=== PATIENT | male | born 1960 | race African-American/Black ===

== ENCOUNTER 2019-11-07 15:53 | Inpatient (IN) | payer OTHER ==
[~2019-11-07] VITALS: Ht 165.1 cm; Wt 86.2 kg
[2019-11-07] MEDS ORDERED: LABETALOL HCL 5 MG/ML 20ML VIAL IV STA (16:19)
[2019-11-07] MEDS ORDERED: ONDANSETRON HCL INJ 2MG/ML 2ML 2 MG/ML VIAL IV STA (16:19)
[2019-11-07] MEDS ORDERED: ASPIRIN 81 MG CHEW TAB PO ONE (16:30)
[2019-11-07 16:51] LABS: BASOPHILS % 0.3 % (0.0-1.0); EOSINOPHILS # (AUTO) 0.1 (0.0-0.4); EOSINOPHILS % 1.2 % (0.0-6.0); HEMATOCRIT 34.8 % (38.2-49.6); HEMOGLOBIN 11.2 g/dL (14.0-18.0); LYMPHOCYTES # (AUTO) 1.7 (1.0-3.2); LYMPHOCYTES % 13.8 % (18.0-39.1); MEAN CORPUSCULAR HEMOGLOBIN 28.4 pg (28-32); MEAN CORPUSCULAR HGB CONC 32.2 g/dL (31-35); MEAN CORPUSCULAR VOLUME 88.3 fL (81-99); MONOCYTES # (AUTO) 1.2 (0.2-0.8); MONOCYTES % 10.3 % (4.4-11.3); NEUTROPHILS # (AUTO) 8.9 (2.1-6.9); NEUTROPHILS % 73.9 % (38.7-80.0); PLATELET COUNT 323 x10e3/uL (140-360); RED BLOOD COUNT 3.94 x10e6/uL (4.3-5.7); RED CELL DISTRIBUTION WIDTH 14.6 % (11.7-14.4)
[2019-11-07 16:58] LABS: INR 1.04; PROTHROMBIN TIME 14.2 seconds (11.9-14.5)
[2019-11-07 16:59] LABS: PARTIAL THROMBOPLASTIN TIME 36.8 seconds (23.8-35.5)
[2019-11-07 17:09] LABS: ALANINE AMINOTRANSFERASE 31 IU/L (0-55); ALBUMIN 3.1 g/dL (3.5-5.0); ALBUMIN/GLOBULIN RATIO 0.7 (0.8-2.0); ALKALINE PHOSPHATASE 138 IU/L (40-150); ANION GAP 12.6 mmol/L (8-16); BLOOD UREA NITROGEN 12 mg/dL (7-26); BUN/CREATININE RATIO 14 (6-25); CALCIUM 8.9 mg/dL (8.4-10.2); CARBON DIOXIDE 23 mmol/L (22-29); CHLORIDE 106 mmol/L (98-107); CREATINE KINASE 662 IU/L (30-200); CREATININE, SERUM 0.86 mg/dL (0.72-1.25); EST GLOMERULAR FILTRATION RATE > 60 ML/MIN (60-); GLUCOSE 127 mg/dL (74-118); POTASSIUM 3.6 mmol/L (3.5-5.1); SODIUM 138 mmol/L (136-145)
--- NOTE | 2019-11-07 17:10 | Diagnostic Imaging Report ---
EXAMINATION: CHEST SINGLE (PORTABLE) INDICATION: Chest pain COMPARISON: None FINDINGS: AP view TUBES and LINES: There is a dual-lead pacemaker embedded in the left anterior chest wall with distal tips in the right atrium and right ventricle. Midline sternotomy wires are seen LUNGS/PLEURA: Lungs are well inflated. There is mild prominence of the central pulmonary vasculature, consistent with pulmonary venous congestion.. There is no pleural effusion or pneumothorax. HEART AND MEDIASTINUM: Cardiac size is mildly enlarged. BONES AND SOFT TISSUES: No acute osseous lesion. Soft tissues are unremarkable. UPPER ABDOMEN: No free air under the diaphragm. IMPRESSION: Mild cardiomegaly and very mild pulmonary venous congestion. Signed by: Adelso Becerra MD on 11/07/2019 5:06 PM
[2019-11-07] MEDS ORDERED: NITROGLYCERIN 2% OINT 1 GM PKT TOP ONE (17:45)
[2019-11-07] MEDS ORDERED: CLOPIDOGREL BISULFATE 75 MG TAB PO ONE (17:45)
[2019-11-07] MEDS: ENOXAPARIN SODIUM INJ 100 MG/ML SYR SC SCH (17:59)
[2019-11-07] MEDS ORDERED: AMIODARONE HCL 150MG 100 ML IV SCH (18:15)
[2019-11-07] MEDS ORDERED: AMIODARONE HCL 360MG 200 ML IV SCH (18:15)
[2019-11-07] MEDS ORDERED: AMIODARONE HCL 150 MG in DEXTROSE 5% 100ML 100 ML IV SCH (18:30)
[2019-11-07] MEDS ORDERED: AMIODARONE HCL INJ 150MG/3ML ONE (18:33)
[2019-11-07] MEDS: AMIODARONE HCL 900 MG in DEXTROSE 5 % 500ML BOTTLE 500 ML IV SCH (18:56)
[2019-11-07] MEDS ORDERED: ONDANSETRON HCL INJ 2MG/ML 2ML 2 MG/ML VIAL IV PRN (19:00)
--- NOTE | 2019-11-07 19:04 | Emergency Department Note ---
History of Present Illnes History of Present Illness Chief Complaint: Chest Pain History of Present Illness This is a 58 year old male PATIENT IN FROM HOME WITH COMPLAINTS OF CHEST PAIN X 2 WEEKS, RATES PAIN 10/10. PATIENT WITH A HISTORY OF CABG, HTN, CVA, [place]. NOT TAKING HIS BP MEDS FOR MONTHS Historian: Patient Arrival Mode: Car Sheeter Machine Operator Required: No Onset (how long ago): week(s) (2) Location: CHEST Quality: TIGHT Radiation: Reports extremity Severity: moderate Onset quality: gradual Timing of current episode: intermittent Progression: waxing and waning Chronicity: new Context: Denies recent illness Relieving factors: none Exacerbating factors: none Associated symptoms: Reports denies other symptoms Treatments prior to arrival: none Past Medical/Family History Physician Review I have reviewed the patient's past medical and family history. Any updates have been documented here. Past Medical History Recent Fever: No Clinical Suspicion of Infectio: No New/Unexplained Change in Ment: No Past Medical History: Hypertension, [place], CVA, Hyperlipedemia Past Surgical History: CABG, PCI, Pacer/AICD Social History Smoking Cessation: Former smoker Counseling Performed: No Alcohol Use: Occasional Any Illegal Drug Use: No Physically hurt or threatened: No Other Any Pre-Existing Lines (PICC,: No Review of Systems Review of Systems Constitutional: Reports no symptoms EENTM: Reports no symptoms Cardiovascular: Reports as per HPI Respiratory: Reports no symptoms Gastrointestinal: Reports no symptoms Genitourinary: Reports no symptoms Musculoskeletal: Reports no symptoms Integumentary: Reports no symptoms Neurological: Reports no symptoms Psychological: Reports no symptoms Endocrine: Reports no symptoms Hematological/Lymphatic: Reports no symptoms Physical Exam Related Data Allergies: Coded Allergies: morphine (Verified Allergy, Severe, VOMIT BLOOD, 11/07/19) Triage Vital Signs Vital Signs Date Time Temp Pulse Resp B/P (MAP) Pulse Ox O2 Delivery O2 Flow Rate FiO2 11/07/19 16:04 98.8 99 16 179/124 100 Room Air Vital signs reviewed: Yes Physical Exam CONSTITUTIONAL Constitutional: Present well-developed, Present well-nourished HENT HENT: Present normocephalic, Present atraumatic, Present oropharynx clear/mois t, Present nose normal HENT L/R: Present left ext ear normal, Present right ext ear normal EYES Eyes: Reports PERRL, Reports conjunctivae normal NECK Neck: Present ROM normal PULMONARY Pulmonary: Present effort normal, Present breath sounds normal CARDIOVASCULAR Cardiovascular: Present regular rhythm, Present heart sounds normal, Present capillary refill normal, Present normal rate GASTROINTESTINAL Abdominal: Present soft, Present nontender, Present bowel sounds normal GENITOURINARY Genitourinary: Present exam deferred SKIN Skin: Present warm, Present dry MUSCULOSKELETAL Musculoskeletal: Present ROM normal NEUROLOGICAL Neurological: Present alert, Present oriented x 3, Present no gross motor or sensory deficits PSYCHOLOGICAL Psychological: Present mood/affect normal, Present judgement normal Results Laboratory Result Diagram: 11/07/19 1620 11/07/19 1620 Laboratory Laboratory Tests Test 11/07/19 16:20 White Blood Count 11.99 x10e3/uL (4.8-10.8) Red Blood Count 3.94 x10e6/uL (4.3-5.7) Hemoglobin 11.2 g/dL (14.0-18.0) Hematocrit 34.8 % (38.2-49.6) Mean Corpuscular Volume 88.3 fL (81-99) Mean Corpuscular Hemoglobin 28.4 pg (28-32) Mean Corpuscular Hemoglobin Concent 32.2 g/dL (31-35) Red Cell Distribution Width 14.6 % (11.7-14.4) Platelet Count 323 x10e3/uL (140-360) Neutrophils (%) (Auto) 73.9 % (38.7-80.0) Lymphocytes (%) (Auto) 13.8 % (18.0-39.1) Monocytes (%) (Auto) 10.3 % (4.4-11.3) Eosinophils (%) (Auto) 1.2 % (0.0-6.0) Basophils (%) (Auto) 0.3 % (0.0-1.0) Neutrophils # (Auto) 8.9 (2.1-6.9) Lymphocytes # (Auto) 1.7 (1.0-3.2) Monocytes # (Auto) 1.2 (0.2-0.8) Eosinophils # (Auto) 0.1 (0.0-0.4) Basophils # (Auto) 0.0 (0.0-0.1) Absolute Immature Granulocyte (auto 0.06 x10e3/uL (0-0.1) Prothrombin Time 14.2 seconds (11.9-14.5) Prothromb Time International Ratio 1.04 Activated Partial Thromboplast Time 36.8 seconds (23.8-35.5) Sodium Level 138 mmol/L (136-145) Potassium Level 3.6 mmol/L (3.5-5.1) Chloride Level 106 mmol/L (98-107) Carbon Dioxide Level 23 mmol/L (22-29) Anion Gap 12.6 mmol/L (8-16) Blood Urea Nitrogen 12 mg/dL (7-26) Creatinine 0.86 mg/dL (0.72-1.25) Estimat Glomerular Filtration Rate > 60 ML/MIN (60-) BUN/Creatinine Ratio 14 (6-25) Glucose Level 127 mg/dL (74-118) Calcium Level 8.9 mg/dL (8.4-10.2) Total Bilirubin 0.7 mg/dL (0.2-1.2) Aspartate Amino Transf (AST/SGOT) 68 IU/L (5-34) Alanine Aminotransferase (ALT/SGPT) 31 IU/L (0-55) Alkaline Phosphatase 138 IU/L (40-150) Creatine Kinase 662 IU/L (30-200) Creatine Kinase MB 61.30 ng/mL (0-5.0) Troponin I 20.789 ng/mL (0-0.300) B-Type Natriuretic Peptide 823.9 pg/mL (0-100) Total Protein 7.5 g/dL (6.5-8.1) Albumin 3.1 g/dL (3.5-5.0) Globulin 4.4 g/dL (2.3-3.5) Albumin/Globulin Ratio 0.7 (0.8-2.0) Lab results reviewed: Yes Imaging Imaging results reviewed: Yes Impressions EXAMINATION: CHEST SINGLE (PORTABLE) INDICATION: Chest pain COMPARISON: None FINDINGS: AP view TUBES and LINES: There is a dual-lead pacemaker embedded in the left anterior chest wall with distal tips in the right atrium and right ventricle. Midline sternotomy wires are seen LUNGS/PLEURA: Lungs are well inflated. There is mild prominence of the central pulmonary vasculature, consistent with pulmonary venous congestion.. There is no pleural effusion or pneumothorax. HEART AND MEDIASTINUM: Cardiac size is mildly enlarged. BONES AND SOFT TISSUES: No acute osseous lesion. Soft tissues are unremarkable. UPPER ABDOMEN: No free air under the diaphragm. IMPRESSION: Mild cardiomegaly and very mild pulmonary venous congestion. Signed by: Adelso Becerra MD on 11/07/2019 5:06 PM Procedures 12 Lead ECG Interpretation ECG Interpretation #1: ECG: ECG 2 Date: Nov 07, 2019 Time: 16:14 Rhythm: sinus rhythm Rate: normal (98) QRS axis: normal Conduction: intraventricular conduction delay ST segment elevation: V3 (2 MM) ST segment flattening: I, aVL T wave inversion: II, III, aVF, V5, V6 Other findings: LVH Clinical Impression: abnormal ECG Additional Comments ECG SENT TO Chang SOSA FROM TRIAGE ECG Interpretation #2: ECG: ECG 2 Sheeter Machine Operator: Interpreted by ED physician Date: Nov 07, 2019 Time: 18:15 Rhythm: sinus rhythm (BIATRIAL ENLARGEMENT) Conduction: intraventricular conduction delay T wave elevation: V4, V5 Other findings: LVH, LVH with strain ABG Interpretation Additional comments SENT TO DR SOSA, PT STILL HAVING CP - HE WILL BRING TO DENTAL COORDINATOR Critical Care Time Total Critical Care Time (min): 45 Critical care time exclusive o: separately billable procedures Critcal care necessary due to: cardiac failure Critcal care time spent by me: discussion w consultants, discussion w primary provider, evaluation patient response to tx, examination of patient, order/perform tx or interventions, order/review laboratory studies, re- evaluation of patient condition Assessment & Plan Medical Decision Making MDM HYPERTENSIVE CRISIS/EMERGENCY WITH CP - CBC, CHEM, CARDIACS, ECG, CXR, COAGS, BNP - R/O STEMI/NSTEMI, RENAL INSUFF, CHF. CONTROL BP, ANTICOAGULATE Reassessment Reassessment TO DENTAL COORDINATOR, ICU ADMIT - SPOKE WITH Chang PULIDO L HAMER. PT HAD ~14 BEAT RUN OF VT - AMIODARONE STARTED Assessment & Plan Final Impression: (1) Malignant hypertension (2) Ventricular tachycardia, nonsustained (3) NSTEMI (non-ST elevated myocardial infarction) (4) Chest pain Last Vital Signs Date Time Temp Pulse Resp B/P (MAP) Pulse Ox O2 Delivery O2 Flow Rate FiO2 11/07/19 18:35 79 17 150/107 99 11/07/19 16:04 98.8 Room Air Medications in the ED Ondansetron HCl 4 mg ONCE STAT IV Last administered on 11/07/19at 17:59; Admin Dose 4 MG; Start 11/07/19 at 16:19; Stop 11/07/19 at 16:26; Status DC Aspirin 324 mg ONCE ONCE PO Last administered on 11/07/19at 17:59; Admin Dose 324 MG; Start 11/07/19 at 16:30; Stop 11/07/19 at 16:31; Status DC Labetalol HCl 10 mg NOW STAT IV Last administered on 11/07/19at 17:59; Admin Dose 10 MG; Start 11/07/19 at 16:19; Stop 11/07/19 at 16:26; Status DC Clopidogrel Bisulfate 600 mg ONCE ONCE PO Last administered on 11/07/19at 17:59; Admin Dose 600 MG; Start 11/07/19 at 17:45; Stop 11/07/19 at 17:46; Status DC Enoxaparin Sodium 90 mg Q12H SC Last administered on 11/07/19at 17:59; Admin Dose 90 MG; Start 11/07/19 at 17:45; Stop 11/14/19 at 17:44 Nitroglycerin 1 gm ONCE ONCE TOP Last administered on 11/07/19at 17:59; Admin Dose 1 GM; Start 11/07/19 at 17:45; Stop 11/07/19 at 17:46; Status DC Amiodarone HCl 100 ml @ 600 mls/hr ONCE IV ; Start 11/07/19 at 18:15; Stop 12/07/19 at 18:14; Status UNV Amiodarone HCl 200 ml @ 33 mls/hr Q6H IV ; Start 11/08/19 at 00:00; Stop 11/08/19 at 05:59; Status UNV Amiodarone HCl 200 ml @ 16.6 mls/hr Q18H IV ; Start 11/07/19 at 18:15; Stop 11/08/19 at 12:14; Status UNV Amiodarone HCl 900 mg/Dextrose/ Water 518 ml @ 33 mls/hr [id number] IV ; Start 11/07/19 at 18:30 Amiodarone HCl 150 mg/Dextrose 103 ml @ 618 mls/hr ONCE IV ; Start 11/07/19 at 18:30; Stop 11/07/19 at 18:42; Status DC Amiodarone HCl 50 mg STK-MED ONCE .ROUTE ; Start 11/07/19 at 18:33; Stop 10/20 12/09 at 18:27; Status DC Ondansetron HCl 4 mg Q4H PRN IV NAUSEA AND VOMITING; Start 11/07/19 at 19:00; Stop 12/07/19 at 18:59; Status NEVAEH PIERSON MD Nov 07, 2019 19:04
[2019-11-07] MEDS ORDERED: MIDAZOLAM HCL 2 MG/2 ML VIAL ONE ×2 (19:31→20:14)
[2019-11-07] MEDS ORDERED: VERAPAMIL HCL 2.5 MG/ML 2 ML VIAL ONE (19:31)
[2019-11-07] MEDS ORDERED: LIDOCAINE HCL 2% LOCAL 20 ML VIAL ONE (19:31)
[2019-11-07] MEDS ORDERED: HEPARIN SOD (PORCINE) 1000 UNIT/ML 30ML ONE (19:31)
[2019-11-07] MEDS ORDERED: FENTANYL CITRATE/PF 100MCG/2 ML INJ ONE (19:31)
[2019-11-07] MEDS ORDERED: IOPAMIDOL 370 MG/ML 200 ML INFUS..BTL INJ ONE (19:32)
[2019-11-07] MEDS ORDERED: NITROGLYCERIN/D5W 200 MCG/ML 250 ML ONE (19:32)
[2019-11-07] MEDS ORDERED: HEPARIN SOD/SOD CHLORIDE 2,000 ML ONE (19:32)
[2019-11-07] MEDS ORDERED: SODIUM CHLORIDE 0.9% 1000ML 1,000 ML ONE (19:32)
[2019-11-07] MEDS ORDERED: FUROSEMIDE INJ 10 MG/ML 4 ML VIAL ONE (20:54)
--- NOTE | 2019-11-07 21:05 | NUR ---
Pt arrived to ICU 196 at this time via stretcher from clinical laboratory medical director. Pt moved to barwick bed, and connected to [employer] bedside monitor. Pt currently running NSR in the 70's with BBB and depressed ST. Per RN, baseline rhythm post cath. R groin site assessed, within normal limits, pedal pulse palpable. Pt educated on lying in the supine position with R leg completely straight with no bending at the hip. Verbalized understanding. Pt A/O x4, currently on 2L NC, all VSS at this time and no acute distress noted. Will continue to monitor.
[2019-11-07 21:45] VITALS: BP 126/93
[2019-11-07] MEDS ORDERED: ACETAMINOPHEN 325 MG TAB PO PRN (21:45)
[2019-11-07 21:48] VITALS: BP 126/93
[2019-11-07 22:00] VITALS: BP 139/97
[2019-11-07 23:00] VITALS: BP 137/107
[2019-11-07 23:59] VITALS: BP 139/107
[2019-11-08] VITALS (23 sets, daily range): BP systolic 120–172; BP diastolic 82–127
[2019-11-08] MEDS ORDERED: AMIODARONE HCL 360MG 200 ML IV SCH
[2019-11-08] MEDS: AMIODARONE HCL 900 MG in DEXTROSE 5 % 500ML BOTTLE 500 ML IV SCH (01:00)
[2019-11-08 01:54] LABS: CREATINE KINASE MB 109.8 ng/mL (0-5.0)
--- NOTE | 2019-11-08 02:21 | NUR ---
Dr. Luis M patel, critical lab results reported. TNI 28.178, CKMB 109.80 and CK 1131. No new orders at this time.
[2019-11-08 06:00] LABS: BASOPHILS % 0.2 % (0.0-1.0); EOSINOPHILS % 0.4 % (0.0-6.0); HEMATOCRIT 34.5 % (38.2-49.6); LYMPHOCYTES # (AUTO) 2.1 (1.0-3.2); LYMPHOCYTES % 19.5 % (18.0-39.1); MEAN CORPUSCULAR HEMOGLOBIN 28.1 pg (28-32); MEAN CORPUSCULAR HGB CONC 31.9 g/dL (31-35); MONOCYTES # (AUTO) 1.1 (0.2-0.8); MONOCYTES % 10.1 % (4.4-11.3); NEUTROPHILS # (AUTO) 7.3 (2.1-6.9); NEUTROPHILS % 69.4 % (38.7-80.0); PLATELET COUNT 309 x10e3/uL (140-360); RED BLOOD COUNT 3.92 x10e6/uL (4.3-5.7); RED CELL DISTRIBUTION WIDTH 14.6 % (11.7-14.4)
[2019-11-08] MEDS: ENOXAPARIN SODIUM INJ 100 MG/ML SYR SC SCH ×2 (06:19→16:56)
[2019-11-08 06:49] LABS: ALANINE AMINOTRANSFERASE 71 IU/L (0-55); ALBUMIN 3.1 g/dL (3.5-5.0); ALBUMIN/GLOBULIN RATIO 0.7 (0.8-2.0); ALKALINE PHOSPHATASE 132 IU/L (40-150); ANION GAP 14.8 mmol/L (8-16); BLOOD UREA NITROGEN 14 mg/dL (7-26); BUN/CREATININE RATIO 13 (6-25); CALCIUM 8.9 mg/dL (8.4-10.2); CARBON DIOXIDE 21 mmol/L (22-29); CHLORIDE 106 mmol/L (98-107); CHOL/HDL RATIO 9.8 (3.9-4.7); CHOLESTEROL 283 MD/DL (0-199); CREATININE, SERUM 1.07 mg/dL (0.72-1.25); EST GLOMERULAR FILTRATION RATE > 60 ML/MIN (60-); GLUCOSE 126 mg/dL (74-118); HDL CHOLESTEROL 29 MG/DL (40-60); LDL CHOLESTEROL 231 MG/DL (60-130); POTASSIUM 3.8 mmol/L (3.5-5.1); SODIUM 138 mmol/L (136-145); TRIGLYCERIDES 117 MG/DL (0-149)
[2019-11-08 07:20] LABS: CREATINE KINASE MB 150.2 ng/mL (0-5.0)
[2019-11-08] MEDS ORDERED: AMLODIPINE BESY10 MG PO (09:10)
[2019-11-08] MEDS ORDERED: BYSTOLIC10 MG PO (09:10)
[2019-11-08] MEDS ORDERED: CLONIDINE HCL0.2 MG (09:10)
[2019-11-08] MEDS ORDERED: PLAVIX75 MG PO (09:10)
[2019-11-08] MEDS ORDERED: LISINOPRIL10 MG PO (09:10)
[2019-11-08] MEDS: CLOPIDOGREL BISULFATE 75 MG TAB PO SCH (11:03)
[2019-11-08] MEDS: ASPIRIN 81 MG CHEW TAB PO SCH (11:03)
[2019-11-08] MEDS: LISINOPRIL 10 MG TAB PO SCH (13:32)
--- NOTE | 2019-11-08 13:55 | Consultation ---
DATE OF CONSULTATION: Pulmonary Critical Care Consultation CHIEF COMPLAINT: Chest pain and dyspnea. HISTORY OF PRESENT ILLNESS: The patient is a 58-year-old man. He has a history of some hypertension as well as a prior myocardial infarction and some cardiomyopathy. He came in complaining of intermittent chest pain. It was substernal and radiated into the left arm. He had associated shortness of breath. He was seen by Cardiology. He had elevated troponins along with EKG changes. He went to the kiln labourer emergently and had a cardiac stent placed. The patient now reports symptomatic improvement. He is still on amiodarone. He received Plavix as well. PAST SURGICAL HISTORY: 1. Status post CABG. 2. Status post AICD and pacemaker. PAST MEDICAL HISTORY: 1. Cardiomyopathy. 2. Hypertension. 3. Cerebrovascular accident. FAMILY HISTORY: There is a history of cerebrovascular disease. SOCIAL HISTORY: The patient recently quit smoking. He is not a drinker. ALLERGIES: THE PATIENT IS ALLERGIC TO MORPHINE. REVIEW OF SYSTEMS: He has no headache. There are no fevers. He did have some chest pain, that is improved. He had some dyspnea. He has no cough. He has no abdominal pain. There is no nausea or vomiting. He has no leg edema. PHYSICAL EXAMINATION: VITAL SIGNS: Blood pressure is 148/101, saturation is 100%, and pulse is 91. HEENT: Shows no facial swelling or erythema. CARDIAC: Reveals regular rate and rhythm with normal S1 and S2. LUNGS: Auscultation of lungs reveals crackles at the bases. There is no wheezing. ABDOMEN: Soft and nontender. There is no rebound or guarding. EXTREMITIES: Show no leg edema or calf tenderness. There is no cyanosis or clubbing. SKIN: Shows no rashes. NEUROLOGICAL: Shows no focal abnormalities. LABORATORY DATA: White blood cell count is 10.6, hemoglobin is 11, and platelet count is 309. BUN to creatinine ratio is 14 and 1.07. Other electrolytes are within normal limits. Troponin I is 33.9. RADIOGRAPHIC DATA: Chest x-ray shows cardiomegaly and mild pulmonary venous congestion. IMPRESSION: 1. Acute myocardial infarction. 2. Taena-kn-njxitqn systolic congestive heart failure. 3. Hypertension. 4. Atrial fibrillation. PLAN: 1. Continue anti-platelet therapy and amiodarone as recommended by Cardiology. 2. Continue to wean oxygen. 3. Ambulate when approved by Cardiology. MD MICHAEL Wallis/VANCE /[id number]
[2019-11-08] MEDS: CLONIDINE HCL 0.2 MG TAB PO SCH (16:56)
[2019-11-08] MEDS: FUROSEMIDE INJ 10 MG/ML 4 ML VIAL IV SCH (20:46)
[2019-11-08] MEDS: ATORVASTATIN 40 MG TAB PO SCH (20:47)
[2019-11-09] VITALS (15 sets, daily range): BP systolic 70–165; BP diastolic 50–121
--- NOTE | 2019-11-09 02:07 | Progress Note ---
DATE: 11/08/2019 Cardiology Progress Note SUBJECTIVE: Had PCI to the left circumflex yesterday. Currently chest pain free. OBJECTIVE: VITAL SIGNS: Temperature afebrile, pulse 75, respiratory rate 16, blood pressure 131/84, saturating 99% on 2 L nasal cannula. GENERAL: man, in no acute distress. CARDIOVASCULAR: Regular rate and rhythm. No murmurs, rubs, or gallops. LUNGS: Bibasilar rales. ABDOMEN: Soft, nontender, nondistended. NEURO AND PSYCH: Alert and oriented to person, place, and time. Normal affect. INPATIENT MEDICATIONS: Reviewed. LABORATORY DATA: Reviewed. TELEMETRY DATA: Reviewed, shows normal sinus rhythm. ASSESSMENT AND PLAN: 1. Rbi-WL-bkoneuzyc myocardial infarction. 2. Acute on chronic systolic congestive heart failure. 3. Coronary artery disease, status post coronary artery bypass graft. 4. Nonsustained ventricular tachycardia in a setting of a myocardial infarction. PLAN: Continue diuresing as renal function tolerates. Continue aspirin and Plavix and high-intensity statin. We will up titrate beta-blockers as blood pressure tolerates. We will add ALEM or ARB once. Continue lisinopril. Thank you for this consult. We will continue to follow. MD CESAR King/VANCE /[id number]
--- NOTE | 2019-11-09 02:17 | Consultation ---
DATE OF CONSULTATION: 11/07/2019 Cardiology Consult Note REASON FOR CONSULTATION: Pmz-GI-jeyuurudn myocardial infarction. CHIEF COMPLAINT: Chest pain. HISTORY OF PRESENT ILLNESS: The patient is a 58-year-old man, known history of CAD, status post CABG, presenting with 2 weeks of intermittent chest pressure, now worsened today, noted to have troponin of 20. PAST MEDICAL AND SURGICAL HISTORY: 1. Hypertension. 2. Hyperlipidemia. 3. Coronary artery disease. 4. Status post 3-vessel coronary artery bypass surgery. 5. History of PCI. 6. History of peripheral arterial disease. FAMILY HISTORY: Noncontributory. SOCIAL HISTORY: He does not smoke, drink, or abuse drugs. OUTPATIENT MEDICATIONS: Reviewed. PHYSICAL EXAMINATION: VITAL SIGNS: Temperature afebrile, pulse 71, respiratory rate 18, blood pressure 139/97, saturating 100% on 2 L nasal cannula. GENERAL: man, in no acute distress. CARDIOVASCULAR: Regular rate and rhythm. No murmurs, rubs, or gallops. LUNGS: Bibasilar rales. ABDOMEN: Soft, nontender, nondistended. NEURO AND PSYCH: Alert and oriented to person, place, and time. Normal affect. INPATIENT MEDICATIONS: Reviewed. LABORATORY DATA: Reviewed. Notable for troponin of 20. TELEMETRY: Reviewed shows normal sinus rhythm, an episode of 15 beats of V-tach. ASSESSMENT/PLAN: 1. Wmd-TX-rqmdmbwvf myocardial infarction. 2. Coronary artery disease, status post coronary artery bypass graft and percutaneous coronary intervention in the past. 3. Nonsustained ventricular tachycardia. PLAN: Given ongoing chest pain and nonsustained VT, we will plan for emergent cardiac catheterization and possible PCI. Thank you for this consult. We will continue to follow. MD ARNOLDO KingP/MODL /[id number]
[2019-11-09 05:25] LABS: BASOPHILS # (AUTO) 0.1 (0.0-0.1); BASOPHILS % 0.5 % (0.0-1.0); EOSINOPHILS # (AUTO) 0.1 (0.0-0.4); EOSINOPHILS % 0.5 % (0.0-6.0); HEMATOCRIT 34.1 % (38.2-49.6); HEMOGLOBIN 10.8 g/dL (14.0-18.0); LYMPHOCYTES # (AUTO) 2.2 (1.0-3.2); LYMPHOCYTES % 14.6 % (18.0-39.1); MEAN CORPUSCULAR HEMOGLOBIN 27.7 pg (28-32); MEAN CORPUSCULAR HGB CONC 31.7 g/dL (31-35); MEAN CORPUSCULAR VOLUME 87.4 fL (81-99); MONOCYTES # (AUTO) 1.4 (0.2-0.8); MONOCYTES % 9.3 % (4.4-11.3); NEUTROPHILS # (AUTO) 11.1 (2.1-6.9); NEUTROPHILS % 74.4 % (38.7-80.0); PLATELET COUNT 306 x10e3/uL (140-360); RED CELL DISTRIBUTION WIDTH 14.4 % (11.7-14.4)
[2019-11-09] MEDS: ENOXAPARIN SODIUM INJ 100 MG/ML SYR SC SCH ×2 (05:31→18:12)
[2019-11-09 05:46] LABS: ALANINE AMINOTRANSFERASE 168 IU/L (0-55); ALBUMIN 2.9 g/dL (3.5-5.0); ALBUMIN/GLOBULIN RATIO 0.7 (0.8-2.0); ALKALINE PHOSPHATASE 130 IU/L (40-150); ANION GAP 13.6 mmol/L (8-16); BLOOD UREA NITROGEN 13 mg/dL (7-26); BUN/CREATININE RATIO 11 (6-25); CARBON DIOXIDE 24 mmol/L (22-29); CHLORIDE 103 mmol/L (98-107); CREATININE, SERUM 1.14 mg/dL (0.72-1.25); EST GLOMERULAR FILTRATION RATE > 60 ML/MIN (60-); GLUCOSE 99 mg/dL (74-118); POTASSIUM 3.6 mmol/L (3.5-5.1); SODIUM 137 mmol/L (136-145)
--- NOTE | 2019-11-09 06:22 | NUR ---
Pt noted hypertensive. Dr. Asencio notified. Per , pt t';.l,[id number]
[2019-11-09] MEDS: ASPIRIN 81 MG CHEW TAB PO SCH (08:15)
[2019-11-09] MEDS: CLONIDINE HCL 0.2 MG TAB PO SCH ×2 (08:15→17:00)
[2019-11-09] MEDS: FUROSEMIDE INJ 10 MG/ML 4 ML VIAL IV SCH ×2 (08:15→21:51)
[2019-11-09] MEDS: LISINOPRIL 10 MG TAB PO SCH (08:16)
[2019-11-09] MEDS: CARVEDILOL 12.5 MG TAB PO SCH ×2 (08:16→17:00)
[2019-11-09] MEDS: CLOPIDOGREL BISULFATE 75 MG TAB PO SCH (08:16)
[2019-11-09 08:29] LABS: CREATINE KINASE MB 51.9 ng/mL (0-5.0)
--- NOTE | 2019-11-09 09:55 | NUR ---
RECEIVED PATIENT FROM ICU. PATIENT A/O X3, EVEN RESPIRATIONS ON RA. LUNG SOUNDS CLEAR. TELEMETRY #18 SR WITH BBB. RIGHT GROIN DRESSING C/D/I NO HEMATOMA PRESENT. RIGHT AND LEFT AC IV SL. PATIENT DENIES PAIN AT THIS TIME. ORIENTED PATIENT TO ROOM AND CALL LIGHT AND TO CALL FOR ASSISTANCE IF NEEDED. BED LOW, WHEELS LOCKED, SIDE RAILS X2. CALL LIGHT IN REACH WILL CONTINUE TO MONITOR PATIENT.
--- NOTE | 2019-11-09 10:38 | NUR ---
PATIENTS BLOOD PRESSURE 70/[address] SOSA MAKING ROUNDS NO NEW ORDERS AT THIS TIME SINCE THEY ARE TRYING TO DIURESIS. CALL LIGHT IN REACH WILL CONTINUE TO MONITOR PATIENT.
--- NOTE | 2019-11-09 10:45 | NUR ---
VERBAL ORDER FROM DR. Chang SOSA TO HOLD BLOOD PRESSURE MEDICATIONS FOR THE REST OF THE DAY.
--- NOTE | 2019-11-09 11:22 | NUR ---
BLOOD PRESSURE RECHECKED 87/65. PATIENT REMAINS ASYMPTOMATIC. CALL LIGHT IN REACH.
[2019-11-09] MEDS ORDERED: ONDANSETRON HCL 4 MG ORAL DISINTEGRATING TAB PO PRN (14:30)
--- NOTE | 2019-11-09 19:30 | NUR ---
BEDSIDE SHIFT REPORT RECEIVED FROM DAY RN. PT IS ALERT AND ORIENTED X3. SPEECH CLEAR. TELE ON. PACEMAKER. RESPIRATIONS ARE EVEN AND UNLABORED.VOIDING PER TOILET. PT DENIES PAIN. 20G SL RT AC. LT AC 18 G SL. CALL LIGHT WITHIN REACH. BED IN LOW POSITION.
[2019-11-09] MEDS: ATORVASTATIN 40 MG TAB PO SCH (21:51)
[2019-11-10] VITALS: BP 123/91
[2019-11-10 04:00] VITALS: BP 130/95
[2019-11-10 05:35] LABS: BASOPHILS # (AUTO) 0.1 (0.0-0.1); BASOPHILS % 0.5 % (0.0-1.0); EOSINOPHILS # (AUTO) 0.3 (0.0-0.4); EOSINOPHILS % 1.9 % (0.0-6.0); HEMATOCRIT 36.1 % (38.2-49.6); HEMOGLOBIN 11.6 g/dL (14.0-18.0); LYMPHOCYTES % 14.6 % (18.0-39.1); MEAN CORPUSCULAR HEMOGLOBIN 28.1 pg (28-32); MEAN CORPUSCULAR HGB CONC 32.1 g/dL (31-35); MEAN CORPUSCULAR VOLUME 87.4 fL (81-99); MONOCYTES # (AUTO) 1.6 (0.2-0.8); MONOCYTES % 11.5 % (4.4-11.3); NEUTROPHILS # (AUTO) 9.6 (2.1-6.9); NEUTROPHILS % 70.9 % (38.7-80.0); PLATELET COUNT 347 x10e3/uL (140-360); RED BLOOD COUNT 4.13 x10e6/uL (4.3-5.7); RED CELL DISTRIBUTION WIDTH 14.4 % (11.7-14.4)
[2019-11-10 06:00] LABS: ALANINE AMINOTRANSFERASE 175 IU/L (0-55); ALBUMIN 2.8 g/dL (3.5-5.0); ALBUMIN/GLOBULIN RATIO 0.6 (0.8-2.0); ALKALINE PHOSPHATASE 132 IU/L (40-150); ANION GAP 15.6 mmol/L (8-16); BLOOD UREA NITROGEN 20 mg/dL (7-26); BUN/CREATININE RATIO 17 (6-25); CALCIUM 8.8 mg/dL (8.4-10.2); CARBON DIOXIDE 25 mmol/L (22-29); CHLORIDE 102 mmol/L (98-107); CREATININE, SERUM 1.15 mg/dL (0.72-1.25); EST GLOMERULAR FILTRATION RATE > 60 ML/MIN (60-); GLUCOSE 95 mg/dL (74-118); POTASSIUM 3.6 mmol/L (3.5-5.1); SODIUM 139 mmol/L (136-145)
[2019-11-10] MEDS: ENOXAPARIN SODIUM INJ 100 MG/ML SYR SC SCH (06:01)
--- NOTE | 2019-11-10 07:00 | NUR ---
RECEIVED PATIENT RESTING IN BED NO S/S OF DISTRESS. BED LOW, WHEELS LOCKED, SIDE RAILS X2. CALL LIGHT IN REACH WILL CONTINUE TO MONITOR PATIENT.
[2019-11-10 08:45] VITALS: BP 138/102
[2019-11-10 08:46] VITALS: BP 139/92
[2019-11-10] MEDS: ASPIRIN 81 MG CHEW TAB PO SCH (09:03)
[2019-11-10] MEDS: CLOPIDOGREL BISULFATE 75 MG TAB PO SCH (09:03)
[2019-11-10] MEDS: FUROSEMIDE INJ 10 MG/ML 4 ML VIAL IV SCH (09:03)
[2019-11-10 09:52] VITALS: BP 139/92
[2019-11-10 11:52] VITALS: BP 146/106
--- NOTE | 2019-11-10 12:44 | NUR ---
SPOKE WITH DR. SOSA REGARDING BLOOD PRESSURE MEDICATION. NEW ORDERS IMPLEMENTED.
[2019-11-10] MEDS ORDERED: CARVEDILOL 3.125 MG TAB PO SCH (13:10)
[2019-11-10] MEDS ORDERED: LISINOPRIL 10 MG TAB PO SCH (13:10)
--- NOTE | 2019-11-10 14:28 | NUR ---
PATIENT CLEARED TO BE DISCHARGED BY CARDIOLOGY.
[2019-11-10] MEDS ORDERED: LASIX40 MG PO (14:54)
[2019-11-10] MEDS ORDERED: COREG3.125 MG PO (14:54)
[2019-11-10] MEDS ORDERED: Atorvastatin PO (14:54)
[2019-11-10] MEDS ORDERED: ASPIRIN CHEW81 MG PO (14:54)
[2019-11-10] MEDS ORDERED: LISINOPRIL10 MG PO (14:54)
--- NOTE | 2019-11-10 15:22 | NUR ---
PATIENT DISCHARGED FROM FACILITY. PATIENT GATHERED ALL PERSONAL BELONGINGS, DISCHARGE INSTRUCTIONS, AND FOLLOW UP INFORMATION. PATIENT LEFT UNIT IN WHEELCHAIR AND WENT HOME VIA PRIVATE AUTO. NO S/S OF DISTRESS LEAVING FACILITY.
--- NOTE | 2019-11-10 23:13 | Discharge Summary ---
CONSULTING PHYSICIANS: 1. Kvng Asencio MD, with Cardiology. 2. Hang Diaz MD, with Pulmonology. CHIEF COMPLAINT: Chest pain. HISTORY OF PRESENT ILLNESS: The patient is a 58-year-old male who admitted with complaints of intermittent sharp chest pain the day prior to admission, the pain began becoming constant and worsened. The pain was substernal, radiated to the left chest. He had associated shortness of breath and diaphoresis. PAST MEDICAL HISTORY: Hypertension, hyperlipidemia, [place], and CVA. PAST SURGICAL HISTORY: Coronary artery bypass graft, AICD/pacemaker. FAMILY HISTORY: Father had CVA. SOCIAL HISTORY: He quit smoking 2 days prior to admission, was smoking a half pack a day. ALLERGIES: ALLERGIC TO MORPHINE. ADMITTING DIAGNOSES: 1. Haz-YN-elhjqcntp myocardial infarction. 2. Acute versus chronic systolic congestive heart failure. 3. Hypertension. 4. Hyperlipidemia. 5. Transaminitis. DISCHARGE DIAGNOSES: 1. Gpi-LW-izdckqddq myocardial infarction. 2. Acute on chronic systolic congestive heart failure. 3. Hypertension with chronic systolic congestive heart failure. 4. Hyperlipidemia. 5. Transaminitis. On admission, WBCs 11.99, hemoglobin 11.2, hematocrit 34.8, platelets 323. PT 14.2, INR 1.04, PTT 36.8, BUN 12, creatinine 0.86, estimated GFR greater than 60. AST 68, ALT 31, alkaline phosphatase 138, creatine kinase 662, troponin I 20.789, CK-MB 61.3. B-type natriuretic peptide 823.9. Subsequent cardiac enzymes, creatine kinase at midnight on 11/07, 1131; CK-MB 109.8; troponin I of 28.178, and on 11/07 at 05:50 in the morning, creatine kinase 1418, CK-MB 150.2, troponin I 33.879. On 11/08, 04:50 in the morning, creatine kinase 1242, CK-MB 51.9, troponin I 60.888. During his stay, hemoglobin A1c was 6.0, TSH 1.181. Coronavirus PCR collected on 11/07 remains pending. Hepatitis profile remains pending. Chest x-ray on 11/06 showed mild cardiomegaly and very mild pulmonary venous congestion. Echocardiogram done on 11/06 showed estimated ejection fraction of 25%, no evidence of pericardial effusion, no evidence of severe valvular abnormality, trace mitral regurgitation, mild aortic insufficiency, mild aortic regurgitation. The patient underwent a left heart cath on 11/01, PCI to left circumflex and drug-eluting stent x2, right groin Perclose, estimated ejection fraction also 25% on left heart cath. The patient had at least one episode of ventricular tachycardia on 11/06 about 2257 hours at 6 beats. Yesterday at 1109 in the morning after receiving blood pressure medication, his blood pressure was 70/50, subsequently gradually increased. His blood pressure medications were held from that point. Blood pressure 107/86 and 123/96, 123/91, 130/95, 138/102. This morning at 0846 blood pressure 139/92 and around noon 146/106. Katelynn ROSARIO spoke with Dr. Jewel Asencio. Cardiac medications should currently be lisinopril 10 mg daily, Coreg 3.125 mg p.o. b.i.d., and Lasix 40 mg p.o. b.i.d., prescriptions have been provided as such, along with the atorvastatin. He is to continue on a low-sodium cardiac diet with at least 1.5 L fluid restriction. Today, on the day of discharge, WBCs 13.59, no complaints of chills or fever. T-max 98.5. Hemoglobin 11.6, hematocrit 36.1, platelets 347. Sodium 139, potassium 3.6, chloride 102, CO2 of 25, anion gap 15.6, BUN 20, creatinine 1.15, estimated GFR greater than 60, glucose 95, calcium 8.8, total protein 7.3, albumin 2.8, total bilirubin 0.4, AST 177, ALT 175, alkaline phosphatase 132. No new imaging studies today. The patient is to follow up with his PCP in 1-2 weeks. Follow up with Dr. Jewel Asencio with Cardiology in 1 week in his office. Dictated by Yovani Dos Santos, GLORIA Anand Burgos MD HWP/MODL /[id number]
--- NOTE | 2019-11-18 21:30 | Operative Report ---
DATE OF PROCEDURE: 11/07/2019 SURGEON: Kvng Asencio MD INDICATION FOR PROCEDURE: Kpb-MU-[id number] IL. PREPROCEDURE ASSESSMENT: The risks, benefits, and alternatives to treatment were explained to the patient prior to the procedure. The patient was deemed to be an appropriate candidate for moderate sedation. Please see chart for informed consent. MEDICATIONS: Please see nursing notes for medications administered throughout the procedure. PROCEDURES PERFORMED: 1. Coronary angiography. 2. Bypass graft angiography. 3. PCI to the left circumflex with drug-eluting stent x1. 4. Femoral angiography. 5. Vascular closure device. 6. Moderate sedation time, 60 minutes. PROCEDURE DETAILS: The patient was brought to the cardiac catheterization laboratory in a fasting state. Right groin was prepped and draped in a sterile fashion. Access to the right common femoral artery was obtained using modified Seldinger technique. A 6-Uzbek sheath was inserted in the right common femoral artery. Coronary angiography was performed using a 5-Uzbek, JL4, and JR4 catheters. Bypass graft angiography was performed using the same JL4 diagnostic catheter. All catheters were removed over a wire. After reviewing the angiographic images, we decided to proceed with PCI of the left circumflex. For PCI of the left circumflex artery, XB 3.5, 6-Uzbek guide catheter was used, which provided adequate support. Lesion was wired using Runthrough wire. Lesion was predilated using a 2.5 x 20 mm balloon followed by 3.0 x 38 mm Synergy drug-eluting stent and overlapping 3.0 x 16 mm Synergy drug-eluting stent in the proximal portion. This resulted in excellent angiographic result without any residual dissection, thrombus, or spasm. All catheters were removed over a wire. The patient tolerated the procedure well. Left heart catheterization was performed using a pigtail catheter. Access site was closed using ProGlide vascular closure device. Aspirin and Plavix were administered in the farm laborer. There were no immediate complications. ACT near 300 was maintained throughout the procedure with IV boluses of heparin. SIGNIFICANT FINDINGS: Left main; large caliber, ingy-ld-ccklvvcq plaquing. LAD; large vessel goes to the apex. One significant diagonal branch with 70% lesion in the proximal LAD and 70% lesion in the ostial diagonal one, which is about a 2 mm vessel. LAD is completely occluded in the midportion and mid and distal LAD fill via TUCKER to LAD graft. Ramus; small size ramus. COMPUTER GAME DESIGNER ostially LAD fills via collaterals from the diagonal. Left circumflex; large left circumflex artery nondominant. One significant OM branch, 90% ostial and 80% mid circumflex lesion. RCA; large dominant RCA, COMPUTER GAME DESIGNER in the proximal portion. SVG to RCA; COMPUTER GAME DESIGNER in the proximal portion. Previously placed SVG to RCA grafts stents appeared to be occluded as well. SVG to OM is occluded. TUCKER to LAD is widely patent. LVEDP 35. LV ejection fraction 25% to 30% with inferior wall being akinetic. GRAFTS AND IMPLANTS: Drug-eluting stent x2 and ProGlide vascular closure device. SPECIMEN REMOVED: None. ESTIMATED BLOOD LOSS: 50 mL. FINAL RECOMMENDATIONS: 1. Continue dual antiplatelet therapy indefinitely. 2. Follow up in clinic 2 weeks postprocedure. MD CESAR King/VANCE /[id number]
--- OUTSIDE RECORDS SUMMARY | 2019-11-20 13:17 | XMS REPORT | Continuity of Care Document ---
Author Author [facility] Organization [facility] Address [address] [place] [address] Phone Unavailable Care Team Providers Care Luggage Maker Name Role Phone NO, PCP PCP Unavailable KILLGIUSEPPE, SADIE Attphys Unavailable KILLAM, SADIE Admphys Unavailable Payers Payer Name Policy Type Policy Number Effective Date Expiration Date Yang Mike o [id number] 2016 00:00:00 [facility] Problems Condition Name Condition Details Condition Category Status Onset Date Resolution Date Last Treatment Date Treating Clinician Comments Source Non-ST elevation myocardial infarction (NSTEMI) Problem Active [facility] Nonsustained ventricular tachycardia Problem Active [facility] Chest pain Problem Active [facility] Malignant hypertension Problem Active [facility] Allergies, Adverse Reactions, Alerts Allergy Name Allergy Type Status Severity Reaction(s) Onset Date Inacti ve Date Treating Clinician Comments Source Morphine Allergy to substance Active Severe VOMIT BLOOD 2019-11-07 00: 00:00 [facility] Social History Social Habit Start Date Stop Date Quantity Comments Source Sex Assigned At 1960 00:00:00 1960 00:00:00 Male [facility] Medications Ordered Medication Name Filled Medication Name Start Date Stop Da te Current Medication? Ordering Clinician Indication Dosage Frequency Signature (SIG) Comments Components Source Aspirin (Aspirin Chew) 81 Mg CHEW Aspirin (Aspirin Chew) 81 Mg CHEW 2019-11-10 14:54:00 Yes 81 Daily [facility] Atorvastatin Atorvastatin 2019-11-10 14:54:00 Yes 80 Bedtime [facility] Carvedilol (Coreg) 3.125 Mg TAB Carvedilol (Coreg) 3.125 Mg TAB 2019-11-10 14:54:00 Yes 3.125 Twice A Day At 9:00AM And 9:0 0PM [facility] Furosemide (Lasix) 40 Mg TABLET Furosemide (Lasix) 40 Mg TAB LET 2019-11-10 14:54:00 Yes 40 Twice A Day [facility] Lisinopril Lisinopril 2019-11-10 14:54:00 Yes 10 Kerry ly [facility] Clopidogrel Bisulfate (Plavix) 75 Mg TABLET Clopidogre l Bisulfate (Plavix) 75 Mg TABLET Yes 75 Daily [facility] Amlodipine Besylate Amlodipine Besylate 2019-11-10 00:00:00 No 10 Daily [facility] Clonidine Hcl Clonidine Hcl 2019-11-10 00:00:00 No Twice A Day [facility] Lisinopril Lisinopril 2019-11-10 00:00:00 No 20 Kerry ly [facility] Nebivolol Hcl (Bystolic) 10 Mg TABLET Nebivolol Hcl (Bystolic) 1 0 Mg TABLET 2019-11-10 00:00:00 No 10 Daily [facility] Vital Signs Vital Name Observation Time Observation Value Comments Source Body Temperature 2019-11-10 11:52:00 97.4 [degF] [facility] BMI (Body Mass Index) 2019-11-07 21:45:00 31.6 kg/m2 [facility] Weight 2019-11-07 16:04:00 190 [lb_av] [facility] Procedures This patient has no known procedures. Plan of Care Planned Activity Planned Date Details Comments Source Instructions Hypertension [facility] Results Test Description Test Time Test Comments Results Result Comments Source Blood leukocytes automated count (number/volume) 2019-11-10 05:20:00 Test Item White Blood Count (test code = 6690-2) 13.59 4.8-10.8 [facility] automated count (number/volume)2019-11-10 05:20:00* Test Item Value Reference Range Interpretation Comments Red Blood Count (test code = 789-8) 4.13 4.3-5.7 [facility] hemoglobin measurement (moles/volume)2019-11-10 05:20:00* Test Item Value Reference Range Interpretation Comments Hemoglobin (test code = 73104-8) 11.6 14.0-18.0 [facility] System[facility] blood hematocrit (volume fraction)2019-11-10 05:20:00* Test Item Value Reference Range Interpretation Comments Hematocrit (test code = 4544-3) 36.1 38.2-49.6 [facility] System[facility] erythrocyte mean corpuscular rupinz9661-08-84 05:20:00* Test Item Value Reference Range Interpretation Comments Mean Corpuscular Volume (test code = 787-2) 87.4 81-99 [facility] SystemAutom[facility] erythrocyte mean corpuscular hemoglobin (mass per erythrocyte)2019-11-10 05:20:00* Test Item Value Reference Range Interpretation Comments Mean Corpuscular Hemoglobin (test code = 785-6) 28.1 28-32 [facility] SystemAutom[facility] erythrocyte mean corpuscular hemoglobin concentration measurement (mass/volume)2019-11-10 05:20:00* Test Item Value Reference Range Interpretation Comments Mean Corpuscular Hemoglobin Concent (test code = 786-4) 32.1 31-35 [facility] SystemRDW CkvWe-Thc5502-73-21 05:20:00* Test Item Value Reference Range Interpretation Comments Red Cell Distribution Width (test code = 94282-4) 14.4 11.7 -14.4 [facility] SystemAutomated blood platelet count (count/volume)2019-11-10 05:20:00* Test Item Value Reference Range Interpretation Comments Platelet Count (test code = 777-3) 347 140-360 [facility] SystemAutom[facility] blood segmented neutrophil count as percentage of total uqyripwxkl7522-60-34 05:20:00* Test Item Value Reference Range Interpretation Comments Neutrophils (%) (Auto) (test code = 07073-7) 70.9 38.7-80.0 [facility] SystemAutom[facility] blood lymphocyte count as percentage ot total mfxjtjuslm6354-88-13 05:20:00* Test Item Value Reference Range Interpretation Comments Lymphocytes (%) (Auto) (test code = 736-9) 14.6 18.0-39.1 [facility] SystemAutomated blood monocyte count as percentage of total piddwnsiws8568-71-95 05:20:00* Test Item Value Reference Range Interpretation Comments Monocytes (%) (Auto) (test code = 5905-5) 11.5 4.4-11.3 [facility] SystemAutom[facility] blood eosinophil count as percentage of total zoobngdpgb0297-89-02 05:20:00* Test Item Value Reference Range Interpretation Comments Eosinophils (%) (Auto) (test code = 713-8) 1.9 0.0-6.0 [facility]Aut[facility]ed blood basophil count as percentage of total upfwtcrduh7356-25-64 05:20:00* Test Item Value Reference Range Interpretation Comments Basophils (%) (Auto) (test code = 706-2) 0.5 0.0-1.0 [facility] SystemFluoroscopic procedure less than one hour uczjpltb9637-97-39 05:20:00* Test Item Value Reference Range Interpretation Comments IM GRANULOCYTES % (test code = IM GRANULOCYTES %) 0.6 0.0- 1.0 [facility] SystemAutom[facility] blood neutrophil count 2019-11-10 05:20:00* Test Item Value Reference Range Interpretation Comments Neutrophils # (Auto) (test code = 751-8) 9.6 2.1-6.9 [facility] SystemBlood lymphocytes count (number/volume) 2019-11-10 05:20:00* Test Item Value Reference Range Interpretation Comments Lymphocytes # (Auto) (test code = 46739-6) 2.0 1.0-3.2 [facility] SystemBlood monocytes automated count (number/volume)2019-11-10 05:20:00* Test Item Value Reference Range Interpretation Comments Monocytes # (Auto) (test code = 742-7) 1.6 0.2-0.8 [facility] SystemAutomated blood eosinophil count 2019-11-10 05:20:00* Test Item Value Reference Range Interpretation Comments Eosinophils # (Auto) (test code = 711-2) 0.3 0.0-0.4 [facility] SystemAutomated blood basophil count (count/volume)2019-11-10 05:20:00* Test Item Value Reference Range Interpretation Comments Basophils # (Auto) (test code = 704-7) 0.1 0.0-0.1 [facility] SystemFluoroscopic procedure less than one hour ireyryjx4108-47-95 05:20:00* Test Item Value Reference Range Interpretation Comments Absolute Immature Granulocyte (auto (karmen t code = Absolute Immature Granulocyte (auto) 0.08 0-0.1 [facility] sodium measurement (moles/volume)2019-11-10 05:20:00* Test Item Value Reference Range Interpretation Comments Sodium Level (test code = 2951-2) 139 136-145 [facility] potassium measurement (moles/volume)2019-11-10 05:20:00* Test Item Value Reference Range Interpretation Comments Potassium Level (test code = 2823-3) 3.6 3.5-5.1 [facility] chloride measurement (moles/volume)2019-11-10 05:20:00* Test Item Value Reference Range Interpretation Comments Chloride Level (test code = 2075-0) 102 98-107 [facility] carbon dioxide, total measurement (moles/volume)2019-11-10 05:20:00* Test Item Value Reference Range Interpretation Comments Carbon Dioxide Level (test code = 2028-9) 25 22-29 [facility] anion bqj6667-11-44 05:20:00* Test Item Value Reference Range Interpretation Comments Anion Gap (test code = 65913-9) 15.6 8-16 [facility] urea nitrogen measurement (mass/volume)2019-11-10 05:20:00* Test Item Value Reference Range Interpretation Comments Blood Urea Nitrogen (test code = 3094-0) 20 7-26 [facility] creatinine measurement (mass/volume)2019-11-10 05:20:00* Test Item Value Reference Range Interpretation Comments Creatinine (test code = 2160-0) 1.15 0.72-1.25 [facility] urea nitrogen/creatinine mass hjrje2486-64-72 05:20:00* Test Item Value Reference Range Interpretation Comments BUN/Creatinine Ratio (test code = 3097-3) 17 6-25 [facility] SystemEstimated glomerular filtration rate (GFR) nbcclopokjjee9630-61-29 05:20:00* Test Item Value Reference Range Interpretation Comments Estimat Glomerular Filtration Rate (test code = 780239346) > 60 >60 Ranges were taken from the National Kidney Disease Education Program and the [facility] literature.Reference ranges:60 or greater: Qlqgln12-60 ( for 3 consecutive months): Chronic kidney disease 15 or less: Kidney failureUnited Regional Healthcare SystemGlucose cupgofvjqat1204-64-71 05:20:00* Test Item Value Reference Range Interpretation Comments Glucose Level (test code = ZTA5076) 95 74-118 [facility] calcium measurement (mass/volume)2019-11-10 05:20:00* Test Item Value Reference Range Interpretation Comments Calcium Level (test code = 84690-6) 8.8 8.4-10.2 [facility] total bilirubin measurement (mass/volume)2019-11-10 05:20:00* Test Item Value Reference Range Interpretation Comments Total Bilirubin (test code = 1975-2) 0.4 0.2-1.2 [facility] SystemFluoroscopic procedure less than one hour xtkznuqm4178-74-12 05:20:00* Test Item Value Reference Range Interpretation Comments Aspartate Amino Transf (AST/SGOT) (test code = Aspartate Amino Transf (AST/SGOT)) 177 5-34 [facility] alanine aminotransferase measurement (enzymatic activity/volume)2019-11-10 05:20:00* Test Item Value Reference Range Interpretation Comments Alanine Aminotransferase (ALT/SGPT) (test code = 1742-6) 175 0-55 [facility] protein measurement (mass/volume)2019-11-10 05:20:00* Test Item Value Reference Range Interpretation Comments Total Protein (test code = 2885-2) 7.3 6.5-8.1 [facility] albumin measurement (mass/volume)2019-11-10 05:20:00* Test Item Value Reference Range Interpretation Comments Albumin (test code = 1751-7) 2.8 3.5-5.0 [facility] SystemPlasma globulin measurement (mass/volume) 2019-11-10 05:20:00* Test Item Value Reference Range Interpretation Comments Globulin (test code = 53966-2) 4.5 2.3-3.5 [facility] albumin/globulin mass scumt9520-02-78 05:20:00* Test Item Value Reference Range Interpretation Comments Albumin/Globulin Ratio (test code = 1759-0) 0.6 0.8-2.0 [facility] alkaline phosphatase measurement (enzymatic activity/volume)2019-11-10 05:20:00* Test Item Value Reference Range Interpretation Comments Alkaline Phosphatase (test code = 6768-6) 132 40-150 [facility] creatine kinase measurement (enzymatic activity/volume)2019-11-09 04:50:00* Test Item Value Reference Range Interpretation Comments Creatine Kinase (test code = 2157-6) 1242 30-200 [facility] creatine kinase MB measurement (mass/volume)2019-11-09 04:50:00* Test Item Value Reference Range Interpretation Comments Creatine Kinase MB (test code = 16334-2) 51.90 0-5.0 [facility] SystemTroponin I measurement by highly sensitive enzyme lemyfucjhtg7325-15-60 04:50:00* Test Item Value Reference Range Interpretation Comments Troponin I (test code = 14388-5) 60.888 0-0.300 Elevated result called to carlos mccullough at 0829 on 11/09/19 by Cara Maki. [facility] SystemFluoroscopic procedure less than one hour aqbwtrrx4812-65-22 05:50:00* Test Item Value Reference Range Interpretation Comments Hemoglobin A1c Percent (test code = Hemoglobin A1c Percent) 6.0 4.0-7.0 [facility] triglyceride measurement (mass/volume)2019-11-08 05:50:00* Test Item Value Reference Range Interpretation Comments Triglycerides Level (test code = 2571-8) 117 0-149 [facility] cholesterol measurement (mass/volume)2019-11-08 05:50:00* Test Item Value Reference Range Interpretation Comments Cholesterol Level (test code = 2093-3) 283 0-199 Less than 200 mg/dL Low Chzc729 - 239 mg/dL Borderline Ietl730 m g/dl and greater High Risk [facility] cholesterol in LDL measurement (mass/volume) 2019-11-08 05:50:00* Test Item Value Reference Range Interpretation Comments LDL Cholesterol (test code = 2089-1) 231 60-130 [facility] cholesterol in HDL measurement (mass/volume)2019-11-08 05:50:00* Test Item Value Reference Range Interpretation Comments HDL Cholesterol (test code = 2085-9) 29 40-60 [facility] total cholesterol/cholesterol in HDL mass nwgbz0332-31-20 05:50:00* Test Item Value Reference Range Interpretation Comments Cholesterol/HDL Ratio (test code = 9830-1) 9.8 3.9-4.7 [facility] thyrotropin measurement by detection limit <= 0.005 miu/l (units/volume)2019-11-08 05:50:00* Test Item Value Reference Range Interpretation Comments Thyroid Stimulating Hormone (TSH) (test code = 56175-9) 1.181 0.350-4.940 [facility] SystemCHEST SINGLE (PORTABLE)2019-11-07 17:04:00 [facility] [address] [place] [address] Patient Name: GOLD ADORNO MR #: [id number] : 1960 Age/Sex: 58/M Req #: [id number] Adm Physician: SADIE PULIDO MD Ordered by: NEVAEH BREWER MD Report #: [id number] Location: MED/SURG Room/Bed: [facility] Procedure: [id number] DX/CHEST SINGLE (PORTABLE) Exam Date: 11/07/19 Exam Time: 163 0 REPORT STATUS: Signed EXAMINAT ION: CHEST SINGLE (PORTABLE) INDICATION: Chest pain COMPARIS ON: None FINDINGS: AP view TUBES and LINES: There is a dual- lead pacemaker embedded in the left anterior chest wall with distal tips in th e right atrium and right ventricle. Midline sternotomy wires are seen LUNGS/PLEURA: Lungs are well inflated. There is mild prominence of the cent ral pulmonary vasculature, consistent with pulmonary venous congestion.. There is no pleural effusion or pneumothorax. HEART AND MEDIASTINUM: Cardiac si ze is mildly enlarged. BONES AND SOFT TISSUES: No acute osseous lesion . Soft tissues are unremarkable. UPPER ABDOMEN: No free air under the di aphragm. IMPRESSION: Mild cardiomegaly and very mild pulmonary venou s congestion. Signed by: Adelso lAba MD on 11/07/2019 5:06 PM Dictated By: ADELSO ALBA MD 05 Transcribed By: AB on 11/07/191705 COPY TO: NEVAEH BREWER MD Prothrombin time (PT) in platelet poor plasma by coagulation fokqv7138-29-70 16:20:00* Test Item Value Reference Range Interpretation Comments Prothrombin Time (test code = 5902-2) 14.2 11.9-14.5 [facility] SystemINR in Platelet poor plasma by Coagulation begxn2024-87-16 16:20:00* Test Item Value Reference Range Interpretation Comments Prothromb Time International Ratio (test code = 6301-6) 1.04 Oral Anticoagulant Therapy INR Values:1. Low Intensity Therapy 1.5 - 2.02 . Moderate Intensity Therapy 2.0 - 3.03. High Intensity Therapy(1) 2.5 - 3. 54. High Intensity Therapy(2) 3.0 - 4.05. Panic Value INR > 5.0 [facility] SystemActivated partial thromboplastin time (aPTT) in platelet poor plasma by coagulation dtcol6422-41-01 16:20:00* Test Item Value Reference Range Interpretation Comments Activated Partial Thromboplast Time (test code = 00615-5) 36.8 23.8-35.5 [facility] F[facility]-wFym4955-67-18 16:20:00* Test Item Value Reference Range Interpretation Comments B-Type Natriuretic Peptide (test code = 38298-2) 823.9 0-100 [facility]
--- OUTSIDE RECORDS SUMMARY | 2019-11-20 13:17 | XMS REPORT | Continuity of Care Document ---
Author Author [facility] Organization [facility] Address [address] [place] [address] Phone Unavailable Care Team Providers Care Quarantine Inspector Name Role Phone NO, PCP PCP Unavailable KILLGIUSEPPE, SADIE Attphys Unavailable KILLAM, SADIE Admphys Unavailable Payers Payer Name Policy Type Policy Number Effective Date Expiration Date Yang Mike o [id number] 2016 00:00:00 [facility] Problems Condition Name Condition Details Condition Category Status Onset Date Resolution Date Last Treatment Date Treating Clinician Comments Source Non-ST elevation myocardial infarction (NSTEMI) Problem Active [facility] Nonsustained ventricular tachycardia Problem Active [facility] Chest pain Problem Active [facility] Malignant hypertension Problem Active [facility] Allergies, Adverse Reactions, Alerts Allergy Name Allergy Type Status Severity Reaction(s) Onset Date Inacti ve Date Treating Clinician Comments Source Morphine Allergy to substance Active Severe VOMIT BLOOD 2019-11-07 00: 00:00 [facility] Social History Social Habit Start Date Stop Date Quantity Comments Source Sex Assigned At 1960 00:00:00 1960 00:00:00 Male [facility] Medications Ordered Medication Name Filled Medication Name Start Date Stop Da te Current Medication? Ordering Clinician Indication Dosage Frequency Signature (SIG) Comments Components Source Aspirin (Aspirin Chew) 81 Mg CHEW Aspirin (Aspirin Chew) 81 Mg CHEW 2019-11-10 14:54:00 Yes 81 Daily [facility] Atorvastatin Atorvastatin 2019-11-10 14:54:00 Yes 80 Bedtime [facility] Carvedilol (Coreg) 3.125 Mg TAB Carvedilol (Coreg) 3.125 Mg TAB 2019-11-10 14:54:00 Yes 3.125 Twice A Day At 9:00AM And 9:0 0PM [facility] Furosemide (Lasix) 40 Mg TABLET Furosemide (Lasix) 40 Mg TAB LET 2019-11-10 14:54:00 Yes 40 Twice A Day [facility] Lisinopril Lisinopril 2019-11-10 14:54:00 Yes 10 Kerry ly [facility] Clopidogrel Bisulfate (Plavix) 75 Mg TABLET Clopidogre l Bisulfate (Plavix) 75 Mg TABLET Yes 75 Daily [facility] Amlodipine Besylate Amlodipine Besylate 2019-11-10 00:00:00 No 10 Daily [facility] Clonidine Hcl Clonidine Hcl 2019-11-10 00:00:00 No Twice A Day [facility] Lisinopril Lisinopril 2019-11-10 00:00:00 No 20 Kerry ly [facility] Nebivolol Hcl (Bystolic) 10 Mg TABLET Nebivolol Hcl (Bystolic) 1 0 Mg TABLET 2019-11-10 00:00:00 No 10 Daily [facility] Vital Signs Vital Name Observation Time Observation Value Comments Source Body Temperature 2019-11-10 11:52:00 97.4 [degF] [facility] BMI (Body Mass Index) 2019-11-07 21:45:00 31.6 kg/m2 [facility] Weight 2019-11-07 16:04:00 190 [lb_av] [facility] Procedures This patient has no known procedures. Plan of Care Planned Activity Planned Date Details Comments Source Instructions Hypertension [facility] Results Test Description Test Time Test Comments Results Result Comments Source Blood leukocytes automated count (number/volume) 2019-11-10 05:20:00 Test Item White Blood Count (test code = 6690-2) 13.59 4.8-10.8 [facility]ics[facility] erythrocytes automated count (number/volume)2019-11-10 05:20:00* Test Item Value Reference Range Interpretation Comments Red Blood Count (test code = 789-8) 4.13 4.3-5.7 [facility]ics[facility] hemoglobin measurement (moles/volume)2019-11-10 05:20:00* Test Item Value Reference Range Interpretation Comments Hemoglobin (test code = 02368-7) 11.6 14.0-18.0 [facility] ClinicsAutomated blood hematocrit (volume fraction)2019-11-10 05:20:00* Test Item Value Reference Range Interpretation Comments Hematocrit (test code = 4544-3) 36.1 38.2-49.6 [facility] ClinicsAutomated erythrocyte mean corpuscular [id number] 05:20:00* Test Item Value Reference Range Interpretation Comments Mean Corpuscular Volume (test code = 787-2) 87.4 81-99 [facility] ClinicsAutomated erythrocyte mean corpuscular hemoglobin (mass per erythrocyte)2019-11-10 05:20:00* Test Item Value Reference Range Interpretation Comments Mean Corpuscular Hemoglobin (test code = 785-6) 28.1 28-32 [facility] ClinicsAutomated erythrocyte mean corpuscular hemoglobin concentration measurement (mass/volume)2019-11-10 05:20:00* Test Item Value Reference Range Interpretation Comments Mean Corpuscular Hemoglobin Concent (test code = 786-4) 32.1 31-35 [facility] ClinicsRDW [id number]-[id number] 05:20:00* Test Item Value Reference Range Interpretation Comments Red Cell Distribution Width (test code = 58989-7) 14.4 11.7 -14.4 [facility] ClinicsAutomated blood platelet count (count/volume)2019-11-10 05:20:00* Test Item Value Reference Range Interpretation Comments Platelet Count (test code = 777-3) 347 140-360 [facility] ClinicsAutomated blood segmented neutrophil count as percentage of total rrszbktmsl2000-88-59 05:20:00* Test Item Value Reference Range Interpretation Comments Neutrophils (%) (Auto) (test code = 19062-8) 70.9 38.7-80.0 [facility] ClinicsAutomated blood lymphocyte count as percentage ot total ljofniqlyp0092-75-51 05:20:00* Test Item Value Reference Range Interpretation Comments Lymphocytes (%) (Auto) (test code = 736-9) 14.6 18.0-39.1 [facility] ClinicsAutomated blood monocyte count as percentage of total biklnfozpq5629-79-63 05:20:00* Test Item Value Reference Range Interpretation Comments Monocytes (%) (Auto) (test code = 5905-5) 11.5 4.4-11.3 [facility] ClinicsAutomated blood eosinophil count as percentage of total macnnpzzih9081-14-65 05:20:00* Test Item Value Reference Range Interpretation Comments Eosinophils (%) (Auto) (test code = 713-8) 1.9 0.0-6.0 [facility]icsAutc[facility] blood basophil count as percentage of total dvwnlydstq6348-08-40 05:20:00* Test Item Value Reference Range Interpretation Comments Basophils (%) (Auto) (test code = 706-2) 0.5 0.0-1.0 [facility] ClinicsFluoroscopic procedure less than one hour oeajaqsk6256-33-47 05:20:00* Test Item Value Reference Range Interpretation Comments IM GRANULOCYTES % (test code = IM GRANULOCYTES %) 0.6 0.0- 1.0 [facility] ClinicsAutomated blood neutrophil count 2019-11-10 05:20:00* Test Item Value Reference Range Interpretation Comments Neutrophils # (Auto) (test code = 751-8) 9.6 2.1-6.9 [facility] ClinicsBlood lymphocytes count (number/volume) 2019-11-10 05:20:00* Test Item Value Reference Range Interpretation Comments Lymphocytes # (Auto) (test code = 69448-2) 2.0 1.0-3.2 [facility] ClinicsBlood monocytes automated count (number/volume)2019-11-10 05:20:00* Test Item Value Reference Range Interpretation Comments Monocytes # (Auto) (test code = 742-7) 1.6 0.2-0.8 [facility] ClinicsAutomated blood eosinophil count 2019-11-10 05:20:00* Test Item Value Reference Range Interpretation Comments Eosinophils # (Auto) (test code = 711-2) 0.3 0.0-0.4 [facility] ClinicsAutomated blood basophil count (count/volume)2019-11-10 05:20:00* Test Item Value Reference Range Interpretation Comments Basophils # (Auto) (test code = 704-7) 0.1 0.0-0.1 [facility] ClinicsFluoroscopic procedure less than one hour [id number] 05:20:00* Test Item Value Reference Range Interpretation Comments Absolute Immature Granulocyte (auto (karmen t code = Absolute Immature Granulocyte (auto) 0.08 0-0.1 [facility] sodium measurement (moles/volume)2019-11-10 05:20:00* Test Item Value Reference Range Interpretation Comments Sodium Level (test code = 2951-2) 139 136-145 [facility] potassium measurement (moles/volume)2019-11-10 05:20:00* Test Item Value Reference Range Interpretation Comments Potassium Level (test code = 2823-3) 3.6 3.5-5.1 [facility] chloride measurement (moles/volume)2019-11-10 05:20:00* Test Item Value Reference Range Interpretation Comments Chloride Level (test code = 2075-0) 102 98-107 [facility] carbon dioxide, total measurement (moles/volume)2019-11-10 05:20:00* Test Item Value Reference Range Interpretation Comments Carbon Dioxide Level (test code = 2028-9) 25 22-29 [facility] anion hox7625-05-73 05:20:00* Test Item Value Reference Range Interpretation Comments Anion Gap (test code = 62894-8) 15.6 8-16 [facility] urea nitrogen measurement (mass/volume)2019-11-10 05:20:00* Test Item Value Reference Range Interpretation Comments Blood Urea Nitrogen (test code = 3094-0) 20 7-26 [facility] creatinine measurement (mass/volume)2019-11-10 05:20:00* Test Item Value Reference Range Interpretation Comments Creatinine (test code = 2160-0) 1.15 0.72-1.25 [facility] plasma urea nitrogen/creatinine mass iypfe7778-95-56 05:20:00* Test Item Value Reference Range Interpretation Comments BUN/Creatinine Ratio (test code = 3097-3) 17 6-25 [facility] ClinicsEstimated glomerular filtration rate (GFR) scrlvohgnkwkv1548-98-90 05:20:00* Test Item Value Reference Range Interpretation Comments Estimat Glomerular Filtration Rate (test code = 161961083) > 60 >60 Ranges were taken from the National Kidney Disease Education Program and the [facility] [employer] literature.Reference ranges:60 or greater: Cesbxq24-68 ( for 3 consecutive months): Chronic kidney disease 15 or less: Kidney failureEast [facility] Hospital and ClinicsGlucose azcnhexkcds7779-76-43 05:20:00* Test Item Value Reference Range Interpretation Comments Glucose Level (test code = TEQ5863) 95 74-118 [facility] or plasma calcium measurement (mass/volume)2019-11-10 05:20:00* Test Item Value Reference Range Interpretation Comments Calcium Level (test code = 65211-4) 8.8 8.4-10.2 [facility] total bilirubin measurement (mass/volume)2019-11-10 05:20:00* Test Item Value Reference Range Interpretation Comments Total Bilirubin (test code = 1975-2) 0.4 0.2-1.2 [facility] ClinicsFluoroscopic procedure less than one hour hiwetktx0730-13-44 05:20:00* Test Item Value Reference Range Interpretation Comments Aspartate Amino Transf (AST/SGOT) (test code = Aspartate Amino Transf (AST/SGOT)) 177 5-34 [facility]ererum or plasma alanine aminotransferase measurement (enzymatic activity/volume)2019-11-10 05:20:00* Test Item Value Reference Range Interpretation Comments Alanine Aminotransferase (ALT/SGPT) (test code = 1742-6) 175 0-55 [facility]ererum or plasma protein measurement (mass/volume)2019-11-10 05:20:00* Test Item Value Reference Range Interpretation Comments Total Protein (test code = 2885-2) 7.3 6.5-8.1 [facility]ere[facility] plasma albumin measurement (mass/volume)2019-11-10 05:20:00* Test Item Value Reference Range Interpretation Comments Albumin (test code = 1751-7) 2.8 3.5-5.0 [facility] ClinicsPlasma globulin measurement (mass/volume) 2019-11-10 05:20:00* Test Item Value Reference Range Interpretation Comments Globulin (test code = 27017-9) 4.5 2.3-3.5 [facility] plasma albumin/globulin mass sajwj0999-15-78 05:20:00* Test Item Value Reference Range Interpretation Comments Albumin/Globulin Ratio (test code = 1759-0) 0.6 0.8-2.0 [facility]ererum or plasma alkaline phosphatase measurement (enzymatic activity/volume)2019-11-10 05:20:00* Test Item Value Reference Range Interpretation Comments Alkaline Phosphatase (test code = 6768-6) 132 40-150 [facility]ererum or plasma creatine kinase measurement (enzymatic activity/volume)2019-11-09 04:50:00* Test Item Value Reference Range Interpretation Comments Creatine Kinase (test code = 2157-6) 1242 30-200 [facility]ererum or plasma creatine kinase MB measurement (mass/volume)2019-11-09 04:50:00* Test Item Value Reference Range Interpretation Comments Creatine Kinase MB (test code = 18819-9) 51.90 0-5.0 [facility] ClinicsTroponin I measurement by highly sensitive enzyme fqdprwwdlgs1735-84-23 04:50:00* Test Item Value Reference Range Interpretation Comments Troponin I (test code = 22181-6) 60.888 0-0.300 Elevated result called to carlos mccullough at 0829 on 11/09/19 by Cara Maki. [facility] ClinicsFluoroscopic procedure less than one hour uslpjgdz2862-44-59 05:50:00* Test Item Value Reference Range Interpretation Comments Hemoglobin A1c Percent (test code = Hemoglobin A1c Percent) 6.0 4.0-7.0 [facility] triglyceride measurement (mass/volume)2019-11-08 05:50:00* Test Item Value Reference Range Interpretation Comments Triglycerides Level (test code = 2571-8) 117 0-149 [facility]ere[facility] or plasma cholesterol measurement (mass/volume)2019-11-08 05:50:00* Test Item Value Reference Range Interpretation Comments Cholesterol Level (test code = 2093-3) 283 0-199 Less than 200 mg/dL Low Fngi953 - 239 mg/dL Borderline Bdss879 m g/dl and greater High Risk [facility] cholesterol in LDL measurement (mass/volume) 2019-11-08 05:50:00* Test Item Value Reference Range Interpretation Comments LDL Cholesterol (test code = 2089-1) 231 60-130 [facility] or plasma cholesterol in HDL measurement (mass/volume)2019-11-08 05:50:00* Test Item Value Reference Range Interpretation Comments HDL Cholesterol (test code = 2085-9) 29 40-60 [facility]ererum or plasma total cholesterol/cholesterol in HDL mass vufzn2103-50-17 05:50:00* Test Item Value Reference Range Interpretation Comments Cholesterol/HDL Ratio (test code = 9830-1) 9.8 3.9-4.7 [facility] or plasma thyrotropin measurement by detection limit <= 0.005 miu/l (units/volume)2019-11-08 05:50:00* Test Item Value Reference Range Interpretation Comments Thyroid Stimulating Hormone (TSH) (test code = 36493-5) 1.181 0.350-4.940 [facility] ClinicsCHEST SINGLE (PORTABLE)2019-11-07 17:04:00 [facility] [address] [place] [address] Patient Name: GOLD ADORNO MR #: [id number] : 1960 Age/Sex: 58/M Req #: [id number] Adm Physician: SADIE PULIDO MD Ordered by: NEVAEH BREWER MD Report #: [id number] Location: MED/SURG Room/Bed: [facility] Procedure: [id number] DX/CHEST SINGLE (PORTABLE) Exam Date: 11/07/19 Exam [...] pulmonary venou s congestion. Signed by: Adelso Alba MD on 11/07/2019 5:06 PM Dictated By: ADELSO ALBA MD 05 Transcribed By: AB on 11/07/191705 COPY TO: NEVAEH BREWER MD Prothrombin time (PT) in platelet poor plasma by coagulation [id number] 16:20:00* Test Item Value Reference Range Interpretation Comments Prothrombin Time (test code = 5902-2) 14.2 11.9-14.5 [facility] ClinicsINR in Platelet poor plasma by Coagulation [id number] 16:20:00* Test Item Value Reference Range Interpretation Comments Prothromb Time International Ratio (test code = 6301-6) 1.04 Oral Anticoagulant Therapy INR Values:1. Low Intensity Therapy 1.5 - 2.02 . Moderate Intensity Therapy 2.0 - 3.03. High Intensity Therapy(1) 2.5 - 3. 54. High Intensity Therapy(2) 3.0 - 4.05. Panic Value INR > 5.0 [facility] ClinicsActivated partial thromboplastin time (aPTT) in platelet poor plasma by coagulation [id number] 16:20:00* Test Item Value Reference Range Interpretation Comments Activated Partial Thromboplast Time (test code = 40996-7) 36.8 23.8-35.5 [facility] Hcq-rXds3939-37-18 16:20:00* Test Item Value Reference Range Interpretation Comments B-Type Natriuretic Peptide (test code = 62898-0) 823.9 0-100 [facility]
== END 2019-11-10 15:22 | disposition home or self-care (01) | DRG 246 ==
LOC: ER 16:22 → ERHOLD 19:18 → ICU 21:30 → MED/SURG 11-09 10:06
PROVIDERS: ADMIT Internal Medicine; ATTEND Internal Medicine
PROC: 027035Z Dilation of Coronary Artery, One Artery with Two Drug-eluting Intraluminal Devices, Percutaneous Approach (ICD-10-PCS; principal; 2019-11-07)
PROC: 4A023N7 Measurement of Cardiac Sampling and Pressure, Left Heart, Percutaneous Approach (ICD-10-PCS; 2019-11-07)
PROC: B2131ZZ Fluoroscopy of Multiple Coronary Artery Bypass Grafts using Low Osmolar Contrast (ICD-10-PCS; 2019-11-07)
PROC: B2111ZZ Fluoroscopy of Multiple Coronary Arteries using Low Osmolar Contrast (ICD-10-PCS; 2019-11-07)
PROC: B2181ZZ Fluoroscopy of Left Internal Mammary Bypass Graft using Low Osmolar Contrast (ICD-10-PCS; 2019-11-07)
PROC: B2151ZZ Fluoroscopy of Left Heart using Low Osmolar Contrast (ICD-10-PCS; 2019-11-07)
DX: I21.4 Non-ST elevation (NSTEMI) myocardial infarction (principal); I50.23 Acute on chronic systolic (congestive) heart failure; I16.9 Hypertensive crisis, unspecified; I47.1 Supraventricular tachycardia; Z95.1 Presence of aortocoronary bypass graft; I25.2 Old myocardial infarction; T46.5X6A Underdosing of other antihypertensive drugs, initial encounter; E78.5 Hyperlipidemia, unspecified; Z95.810 Presence of automatic (implantable) cardiac defibrillator; Z86.73 Personal history of transient ischemic attack (TIA), and cerebral infarction without residual deficits; Z87.891 Personal history of nicotine dependence; Z88.5 Allergy status to narcotic agent; Z82.3 Family history of stroke; R74.0 Nonspecific elevation of levels of transaminase and lactic acid dehydrogenase [LDH]; I48.91 Unspecified atrial fibrillation; I11.0 Hypertensive heart disease with heart failure; Z11.59 Encounter for screening for other viral diseases
CPT/HCPCS: 36415; 71045; 80053; 80061; 82550; 82553; 83036; 83880; 84443; 84484; 85025; 85610; 85730; 92928; 93005; 93306; 93459; 99152; 99153; 99284; C1725; C1760; C1769; C1874; C1887; J1644; J1650; J1940; J2001; J2250; J2405; J3010; J7030; Q9967; U0002